=== PATIENT | female | born 1945 | race Caucasian/White ===

== ENCOUNTER → 2016-07-22 | Outpatient (CLI) | payer MEDICARE ==
[~2016-07-22] MED LIST: ALBU8.5H5 INH; ASPI-621 PO; BUDE10.2 IH; CARV3.1212 PO; DIPH25CA61 PO; DOXY100T PO; ESTR0.6246 PO; FURO-93 PO; LANS15CA5 PO; LOSA50TA6 PO; MONT10TA6 PO; MONT10TA9 PO; POTA10CA PO
== END | disposition home or self-care (01) ==
LOC: CFH 08:41
PROVIDERS: ATTEND Internal Medicine Cardiovascular Disease
DX: I08.1 Rheumatic disorders of both mitral and tricuspid valves (principal); I37.1 Nonrheumatic pulmonary valve insufficiency; I10 Essential (primary) hypertension; Z95.0 Presence of cardiac pacemaker
CPT/HCPCS: 93306

== ENCOUNTER → 2016-12-29 | Outpatient (CLI) | payer MEDICARE | END | disposition home or self-care (01) | LOC: CVU 13:53 | PROVIDERS: ATTEND Internal Medicine Cardiovascular Disease | DX: R60.0 Localized edema (principal) | CPT/HCPCS: 93970 ==

== ENCOUNTER 2018-02-25 12:55 | Inpatient (IN) | payer MEDICARE ==
[~2018-02-25] VITALS: Ht 167.6 cm; Wt 87.6 kg
[~2018-02-25 12:55] MED LIST changes: -LOSA50TA6 PO; +LOSA50TA7 PO
[2018-02-25] MEDS ORDERED: CHOL10002 PO (13:13)
[2018-02-25] MEDS ORDERED: HYDR12.53 PO (13:13)
[2018-02-25] MEDS ORDERED: METO25TA2 PO (13:13)
[2018-02-25] MEDS ORDERED: ATOR40TA PO (13:13)
[2018-02-25] MEDS ORDERED: SODIUM CHLORIDE FLUSH 10ML SYR IVF ONE (13:30)
[2018-02-25] MEDS ORDERED: MORPHINE SULFATE 4 MG/ML, 1ML ONE ×2 (13:54→17:03)
[2018-02-25 14:10] LABS: INTERNATIONAL NORMALIZED RATIO 0.98 (0.93-1.1); PROTHROMBIN TIME 10.2 Seconds (9.6-11.5)
[2018-02-25] MEDS: MORPHINE SULFATE 4 MG/ML, 1ML IVPush PRN ×4 (14:44→17:04)
[2018-02-25 14:52] LABS: BASOPHILS # (AUTO) 0.08 x10^3/uL (0-0.1); BASOPHILS % (AUTO) 1 % (0-1); EOSINOPHILS # (AUTO) 0.18 x10^3/uL (0-0.4); EOSINOPHILS % (AUTO) 1 % (1-7); LYMPHOCYTES # (AUTO) 1.76 x10^3/uL (1-3.4); LYMPHOCYTES % (AUTO) 14 % (22-44); MD NO; MEAN CORPUSCULAR HEMOGLOBIN 30.4 pg (27.0-34.8); MEAN CORPUSCULAR HGB CONC 33.3 g/dL (32.4-35.8); MEAN CORPUSCULAR VOLUME 91.4 fL (80-100); MEAN PLATELET VOLUME 8.8 fL (7.4-10.4); MONOCYTES # (AUTO) 0.81 x10^3/uL (0.2-0.8); MONOCYTES % (AUTO) 7 % (2-9); NEUTROPHILS # (AUTO) 9.48 x10^3/uL (1.8-6.8); NEUTROPHILS % (AUTO) 77 % (42-75); PLATELET COUNT 346 x10^3/uL (130-400); RED BLOOD COUNT 5.42 x10^6/uL (3.82-5.3); RED CELL DISTRIBUTION WIDTH 13.9 % (9.6-15.2)
[2018-02-25 15:02] LABS: ALBUMIN 3.9 g/dL (3.4-5.0); ANION GAP 9 mmol/L (5-15); CALCIUM 9.5 mg/dL (8.5-10.1); CHLORIDE 106 mmol/L (98-107)
[2018-02-25 16:14] LABS: MICROSCOPIC NOT IND
[2018-02-25 16:22] LABS: CULTURE INDICATED? NO
[2018-02-25] MEDS ORDERED: DEXTROSE 50%, 50ML SYRINGE IVPush PRN (17:00)
[2018-02-25] MEDS ORDERED: ONDANSETRON ODT 4 MG PO PRN (17:00)
[2018-02-25] MEDS ORDERED: GABAPENTIN 300 MG CAPSULE PO PRN (17:00)
[2018-02-25] MEDS ORDERED: morphine SULFATE 10 MG/ML, 1ML IVPush PRN (17:00)
[2018-02-25] MEDS ORDERED: hydrALAzine 20 MG/ML, 1ML IVPush PRN (17:00)
[2018-02-25] MEDS ORDERED: GLUCAGON 1 MG IM PRN (17:00)
[2018-02-25] MEDS ORDERED: ONDANSETRON 2MG/ML, 2ML IVPush PRN (17:00)
[2018-02-25] MEDS ORDERED: DEXTROSE 4 GM TAB.CHEW PO PRN (17:00)
[2018-02-25] MEDS ORDERED: LABETALOL 5MG/ML, 20ML IVPush PRN (17:00)
[2018-02-25] MEDS ORDERED: ACETAMINOPHEN 325 MG TABLET PO PRN ×2 (17:00→18:00)
[2018-02-25] MEDS ORDERED: FENTANYL PF 100 MCG/2ML IV PRN (18:00)
[2018-02-25] MEDS ORDERED: hydrALAzine 20 MG/ML, 1ML IV PRN (18:00)
[2018-02-25] MEDS ORDERED: MORPHINE SULFATE 4 MG/ML, 1ML IVPush PRN (18:00)
[2018-02-25] MEDS ORDERED: PROMETHAZINE 25 MG/ML, 1ML IV PRN (18:00)
[2018-02-25] MEDS ORDERED: OXYcodone 5 MG/5 ML ORAL.SOL UDC PO PRN (18:00)
[2018-02-25] MEDS ORDERED: ONDANSETRON 2MG/ML, 2ML IV PRN (18:00)
[2018-02-25] MEDS ORDERED: MEPERIDINE/PF 25MG/0.5ML IVPush PRN (18:00)
[2018-02-25] MEDS ORDERED: LABETALOL 5MG/ML, 20ML IV PRN (18:00)
[2018-02-25] MEDS ORDERED: HYDROmorphone 1 MG/ML, 1ML IV PRN (18:00)
[2018-02-25 18:02] LABS: THYROID STIMULATING HORMONE 2.88 mIU/L (0.358-3.740)
[2018-02-25] MEDS ORDERED: NEOSPORIN OINT, 15GM ONE (18:11)
[2018-02-25] MEDS ORDERED: FENTANYL PF 100 MCG/2ML ONE ×2 (18:36→20:31)
[2018-02-25] MEDS ORDERED: ROCURONIUM 10MG/ML,5ML ONE (18:49)
[2018-02-25] MEDS ORDERED: CEFAZOLIN 1,000 MG ONE ×2 (18:49→19:40)
[2018-02-25] MEDS ORDERED: PROPOFOL 10 MG/ML, 20ML ONE (18:49)
[2018-02-25] MEDS ORDERED: DEXAMETHASONE 4 MG/ML, 1ML ONE (19:04)
[2018-02-25] MEDS ORDERED: TRANEXAMIC ACID 100 MG/ML, 10ML ONE ×2 (19:20)
[2018-02-25] MEDS ORDERED: HYDROmorphone 2 MG/ML, 1ML ONE (19:30)
[2018-02-25] MEDS ORDERED: ONDANSETRON 2MG/ML, 2ML ONE (19:40)
[2018-02-25] MEDS ORDERED: OXYcodone 5 MG/5 ML ORAL.SOL UDC ONE (20:31)
[2018-02-25] MEDS ORDERED: CEFAZOLIN PMX 2GM/50ML 50 ML IVPB SCH (21:00)
[2018-02-25 21:30] VITALS: BP 98/66
[2018-02-25] MEDS: SODIUM CHLORIDE FLUSH 10ML SYR IVF SCH (21:30)
[2018-02-25] MEDS: SODIUM CHLORIDE 0.9% 1,000 ML IV SCH (22:00)
[2018-02-25] MEDS: CEFAZOLIN 2,000 MG in SODIUM CHLORIDE 0.9% 50 ML IVPB SCH (22:31)
[2018-02-25] MEDS: INSULIN LISPRO 100 UNITS/ML, PEN SQ-INSULIN SCH (23:10)
[2018-02-25] MEDS: HYDROcodone/APAP 5/325 TABLET PO PRN (23:13)
[2018-02-25] MEDS: METHOCARBAMOL 500 MG TABLET PO PRN (23:13)
[2018-02-26] VITALS (7 sets, daily range): BP systolic 89–112; BP diastolic 58–75
[2018-02-26] MEDS: HYDROcodone/APAP 5/325 TABLET PO PRN ×4 (03:34→21:05)
[2018-02-26 05:25] LABS: BASOPHILS % (AUTO) 0 % (0-1); EOSINOPHILS % (AUTO) 0 % (1-7); LYMPHOCYTES # (AUTO) 0.64 x10^3/uL (1-3.4); LYMPHOCYTES % (AUTO) 5 % (22-44); MD NO; MEAN CORPUSCULAR HEMOGLOBIN 30.3 pg (27.0-34.8); MONOCYTES # (AUTO) 0.65 x10^3/uL (0.2-0.8); MONOCYTES % (AUTO) 5 % (2-9); NEUTROPHILS # (AUTO) 11.62 x10^3/uL (1.8-6.8); NEUTROPHILS % (AUTO) 90 % (42-75); PLATELET COUNT 267 x10^3/uL (130-400); RED BLOOD COUNT 4.38 x10^6/uL (3.82-5.3); RED CELL DISTRIBUTION WIDTH 14.6 % (9.6-15.2)
[2018-02-26 05:26] LABS: ANION GAP 10 mmol/L (5-15); CHLORIDE 108 mmol/L (98-107)
[2018-02-26 05:28] LABS: CALCIUM 9.1 mg/dL (8.5-10.1); CREATININE 1.03 mg/dL (0.55-1.02)
[2018-02-26] MEDS: ENOXAPARIN 40 MG/0.4 ML SQ SCH ×2 (06:00→20:59)
[2018-02-26] MEDS: SODIUM CHLORIDE 0.9% 1,000 ML IV SCH (06:02)
[2018-02-26] MEDS: CEFAZOLIN 2,000 MG in SODIUM CHLORIDE 0.9% 50 ML IVPB SCH (06:45)
[2018-02-26] MEDS: INSULIN LISPRO 100 UNITS/ML, PEN SQ-INSULIN SCH ×4 (07:50→21:00)
[2018-02-26] MEDS: SODIUM CHLORIDE FLUSH 10ML SYR IVF SCH ×2 (09:00→20:55)
[2018-02-26] MEDS: METHOCARBAMOL 500 MG TABLET PO PRN (11:56)
[2018-02-26] MEDS ORDERED: SODIUM CHLORIDE 0.9%, 500ML IVBOLUS ONE (18:30)
[2018-02-26] MEDS ORDERED: ALBUTEROL SULFATE 2.5 MG/3 ML ONE (19:07)
[2018-02-26] MEDS: ALBUTEROL SULFATE 2.5 MG/3 ML NPPB SCH ×2 (19:15→19:35)
[2018-02-26] MEDS ORDERED: ALBUTEROL SULFATE 2.5 MG/3 ML NPPB PRN (20:30)
[2018-02-26] MEDS: LEVOTHYROXINE 50 MCG TABLET PO SCH (21:00)
[2018-02-27] MEDS: HYDROcodone/APAP 5/325 TABLET PO PRN ×5 (02:09→17:20)
[2018-02-27] MEDS: METHOCARBAMOL 500 MG TABLET PO PRN ×3 (02:09→17:20)
[2018-02-27 02:11] VITALS: BP 93/65
[2018-02-27] MEDS: LEVOTHYROXINE 50 MCG TABLET PO SCH (06:30)
[2018-02-27] MEDS: INSULIN LISPRO 100 UNITS/ML, PEN SQ-INSULIN SCH ×4 (07:00→20:11)
[2018-02-27 07:04] VITALS: BP 100/61
[2018-02-27] MEDS: SODIUM CHLORIDE FLUSH 10ML SYR IVF SCH ×2 (09:00→20:11)
[2018-02-27] MEDS: ALBUTEROL SULFATE 2.5 MG/3 ML NPPB SCH (10:28)
[2018-02-27] MEDS ORDERED: ALBUTEROL SULFATE 2.5 MG/3 ML NPPB PRN (13:00)
[2018-02-27 14:36] VITALS: BP 102/66
[2018-02-27 18:45] VITALS: BP 112/78
[2018-02-27] MEDS: ENOXAPARIN 40 MG/0.4 ML SQ SCH (20:11)
[2018-02-27] MEDS: FLUTICASONE/VILANTEROL 200-25MCG/INH INH SCH (20:14)
[2018-02-28 01:54] VITALS: BP 129/72
[2018-02-28] MEDS: LEVOTHYROXINE 50 MCG TABLET PO SCH (06:34)
[2018-02-28 06:41] VITALS: BP 118/74
[2018-02-28] MEDS: INSULIN LISPRO 100 UNITS/ML, PEN SQ-INSULIN SCH ×2 (07:00→11:00)
[2018-02-28] MEDS: FLUTICASONE/VILANTEROL 200-25MCG/INH INH SCH (07:54)
[2018-02-28] MEDS ORDERED: HYDR-3240 PO (07:54)
[2018-02-28] MEDS ORDERED: METH500T7 PO (07:54)
[2018-02-28] MEDS ORDERED: ENOX40SY4 SQ (07:54)
[2018-02-28] MEDS: SODIUM CHLORIDE FLUSH 10ML SYR IVF SCH (07:55)
[2018-02-28] MEDS ORDERED: MAGNESIUM HYDROXIDE 8%, 30ML UDC PO SCH (11:00)
[2018-02-28] MEDS ORDERED: MAGNESIUM CITRATE 300ML ORAL SOL PO PRN ×2 (11:00→11:30)
[2018-02-28] MEDS ORDERED: MAGNESIUM CITRATE 300ML ORAL SOL ONE (11:02)
[2018-02-28 12:02] VITALS: BP 120/80
[2018-02-28] MEDS ORDERED: TRAM50TA2 PO (13:38)
[2018-02-28 14:00] VITALS: BP 120/68
[2018-02-28] MEDS: HYDROcodone/APAP 5/325 TABLET PO PRN (14:31)
== END 2018-02-28 15:45 | DRG 470 ==
LOC: ED 14:53 → EDIP 16:00 → 4NOR 17:09
PROVIDERS: ADMIT Hospitalist; ATTEND Hospitalist
PROC: 0SRS01Z Replacement of Left Hip Joint, Femoral Surface with Metal Synthetic Substitute, Open Approach (ICD-10-PCS; principal; 2018-02-25 18:00)
DX: S72.002A Fracture of unspecified part of neck of left femur, initial encounter for closed fracture (principal); W01.0XXA Fall on same level from slipping, tripping and stumbling without subsequent striking against object, initial encounter; I10 Essential (primary) hypertension; D72.829 Elevated white blood cell count, unspecified; E11.9 Type 2 diabetes mellitus without complications; J45.909 Unspecified asthma, uncomplicated; I49.9 Cardiac arrhythmia, unspecified; Z90.49 Acquired absence of other specified parts of digestive tract; Z82.49 Family history of ischemic heart disease and other diseases of the circulatory system; Z83.3 Family history of diabetes mellitus; Z95.0 Presence of cardiac pacemaker; Z90.710 Acquired absence of both cervix and uterus; Z91.040 Latex allergy status; Z91.048 Other nonmedicinal substance allergy status; Y92.89 Other specified places as the place of occurrence of the external cause; Y99.8 Other external cause status; Y93.H2 Activity, gardening and landscaping
CPT/HCPCS: 36415; 51702; 71045; 72170; 80048; 81003; 82040; 82962; 83036; 83735; 84100; 84443; 85025; 85610; 85730; 93005; 94640; 96374; 99285; G0378; J0690; J1100; J1170; J1650; J2405; J2704; J3010; J7613; C1776; J7030; J7040